=== PATIENT | female | born 2000 | race Caucasian/White ===

== ENCOUNTER 2023-01-19 21:51 | Emergency (ER) | payer MEDICAID ==
[2023-01-19] MEDS ORDERED: diphenhydrAMINE 50 MG/ML SDV IM ONE (22:23)
== END 2023-01-19 23:23 | disposition home or self-care (01) ==
LOC: JP.ED 21:51
DX: T78.40XA Allergy, unspecified, initial encounter (principal); Z88.0 Allergy status to penicillin
CPT/HCPCS: 96372; 99283; J1200

== ENCOUNTER 2025-01-14 19:41 | Emergency (ER) | payer MEDICAID, OTHER ==
[2025-01-14] MEDS: Sodium Chloride 0.9% 10 ML Syringe FLUSH ONE (20:29)
[2025-01-14] MEDS: Iopamidol 612 MG/ML 100 ML Bottle IV PRN (20:29)
== END 2025-01-14 20:51 | disposition home or self-care (01) ==
LOC: JP.ED 19:41
DX: S30.1XXA Contusion of abdominal wall, initial encounter (principal); S20.219A Contusion of unspecified front wall of thorax, initial encounter; Z79.899 Other long term (current) drug therapy; Z88.0 Allergy status to penicillin; V89.2XXA Person injured in unspecified motor-vehicle accident, traffic, initial encounter
CPT/HCPCS: 71260; 74177; 99284; Q9967